=== PATIENT | male | born 1940 | race Caucasian/White ===

== ENCOUNTER 2020-02-10 04:46 | Day surgery (SDC) | payer OTHER ==
[2020-02-09 14:34] VITALS: BMI 29.9
[2020-02-10] MEDS ORDERED: PROPOFOL 20 ML ONE (07:52)
[2020-02-10] MEDS ORDERED: SUCCINYLCHOLINE CHLORIDE 200 MG/10 ML SYRINGE ONE (07:52)
[2020-02-10] MEDS ORDERED: MIDAZOLAM HCL 2 MG/2 ML SINGLE DOSE VIAL ONE (07:52)
[2020-02-10] MEDS ORDERED: ceFAZolin SODIUM 1 GM VIAL IVPB ONE (08:10)
[2020-02-10] MEDS ORDERED: ceFAZolin SODIUM 1 GM VIAL ONE (08:10)
--- NOTE | 2020-02-10 08:41 | OP ---
Operative Note - Note: Operative Date: 02/10/20 Pre-Operative Diagnosis: bph with luts, increase pvr Operation: turp/tuvp Findings: trilobar prostate hypertrophy Post-Operative Diagnosis: Same as Pre-op Chemistry Manager: Alo Quiles Anesthesia: General Specimens Removed: prostate chips Estimated Blood Loss (mls): 0 Instrument used (Debridements only): 0 Drains & Tubes with Location: 24f 30cc flannery Drains, Volume Out (mls): 0 Blood Volume Replaced (mls): 0 Fluid Volume Replaced (mls): 0 Operative Report Dictated: Yes
[2020-02-10] MEDS ORDERED: ACETAMINOPHEN 325 MG TABLET (FP) PO PRN (08:43)
[2020-02-10] MEDS ORDERED: ONDANSETRON 4 MG/2 ML VIAL IVPUSH PRN (08:46)
[2020-02-10] MEDS ORDERED: oxyCODONE HCL 5 MG TABLET PO PRN (08:46)
[2020-02-10] MEDS ORDERED: LACTATED RINGERS SOLUTION 1,000 ML IV SCH (09:00)
[2020-02-10] MEDS ORDERED: DEXAMETHASONE SOD PHOSPHATE 4 MG/1 ML VIAL ONE (09:18)
[2020-02-10] MEDS ORDERED: amLODIPine BESYLATE 5 MG TABLET (FP) PO SCH (10:00)
[2020-02-10] MEDS ORDERED: ATORVASTATIN CA 20 MG TABLET (FP) PO SCH (10:00)
[2020-02-10] MEDS ORDERED: ASCORBIC ACID 500 MG TABLET (FP) PO SCH (10:00)
--- NOTE | 2020-02-10 10:40 | CONS ---
DATE OF CONSULTATION: DATE OF DICTATION: 02/10/2020 PREOPERATIVE NOTE HISTORY OF PRESENT ILLNESS: Patient is a 79-year-old male with a history of prostatism, including frequency, urgency, dysuria, terminal dribbling and feelings of incomplete bladder emptying. He also has persistent microscopic hematuria. He wakes up 3-4 times at night. PAST MEDICAL HISTORY: Patient does have history of high blood pressure and hyperlipidemia. MEDICATIONS: He is on Norvasc and statin. ALLERGIES: He denies any allergies. SOCIAL HISTORY: He denies ethanol or tobacco. PHYSICAL EXAMINATION: General: Revealed a well-developed gentleman, no apparent distress. Genitourinary: Genitalia are atraumatic. Prostate is 3+, smooth, nontender. LABORATORY DATA: PSA is 1.6. IMPRESSION: At present is benign prostatic hypertrophy with lower urinary tract symptoms, possible stricture. PLAN: Cystoscopy, dilation, possible TURP. The patient will undergo the procedure. This was explained in detail to the patient, and he agrees. Jena [id number]
--- NOTE | 2020-02-10 10:58 | OP ---
DATE OF OPERATION: 02/10/2020 PREOPERATIVE DIAGNOSES: Prostatism, increased postvoid residual. OPERATIVE PROCEDURE: Cystourethroscopy, transurethral resection of prostate, transurethral vaporization of prostate. ANESTHESIA: General. BLOOD LOSS: 40 mL. DESCRIPTION OF PROCEDURE: Under above-stated anesthesia, patient was prepped and draped in the usual sterile manner. He was placed in the dorsal lithotomy position. Cystoscopy revealed trilobar hypertrophy of the prostate with lateral lobe kissing. The bladder revealed grade 2 trabeculation. No lesions or calculi were seen. A resectoscope was inserted. Resection of the prostate was commenced in the usual fashion. Prostate chips were evacuated with an Proxsys evacuator. A VaporTrode was then introduced, and excess prostate tissue was vaporized. Again, no bleeding or prostate tissue was seen. Therefore, the bladder was emptied. A 24-Urdu 2-way Madrigal was inserted. This was connected to a drainage bag. The patient tolerated the procedure well. He returned to the recovery room in good condition. Jena [id number]
[2020-02-10 13:31] VITALS: BP 176/86; PULSE 83; TEMP 98.5
--- NOTE | 2020-02-13 15:25 | PATH ---
Surgical Pathology Report Patient Name: ADILENE ENGEL [facility]. Rec. #: [id number] /Age/Gender: 1940 (Age: 79) / M Account: [id number] Location: [facility] Taken: 02/10/2020 Received: 02/10/2020 Reported: 02/13/2020 Physicians: Alo Quiles M.D. Specimen(s) Received PROSTATE CHIPS Clinical History Benign prostatic hypertrophy Final Diagnosis PROSTATE CHIPS, TRANSURETHRAL RESECTION OF THE PROSTATE: BENIGN PROSTATIC TISSUE WITH STROMAL AND GLANDULAR HYPERPLASIA, ACUTE AND CHRONIC PROSTATITIS. ADJACENT BENIGN UROTHELIAL MUCOSA SHOWING CHRONIC INFLAMMATION WITH FOCAL POLYPOID/PAPILLARY CYSTITIS. Electronically Signed Daphne Lew M.D. Gross Description Received in formalin labeled "prostate chips," is a 3 g, 4.3 x 3.0 x 0.4 cm aggregate of bedoya-pink, firm to rubbery portions of tissue, consistent with prostate chips. The specimen is entirely submitted in 3 cassettes. /02/10/2020 [facility]02/10/2020
== END 2020-02-10 12:00 | disposition home or self-care (01) ==
LOC: JASU-SURG 04:46
PROVIDERS: ATTEND Urology
PROC: 0VT08ZZ Resection of Prostate, Via Natural or Artificial Opening Endoscopic (ICD-10-PCS; principal; 2020-02-10 08:00)
DX: N40.1 Benign prostatic hyperplasia with lower urinary tract symptoms (principal); R35.0 Frequency of micturition; R39.15 Urgency of urination
CPT/HCPCS: 87086; 88305-TC; 94760

== ENCOUNTER 2020-02-10 15:11 | Emergency (ER) | payer OTHER ==
[2020-02-10 15:25] VITALS: TEMP 98.9; BMI 28.3
--- NOTE | 2020-02-10 15:58 | PDOC ---
History of Present Illness <Beena Newell - Last Filed: 02/10/20 18:48> - History of Present Illness Initial Comments: 79 YOM h/o BPH with multiple surgical interventions s/p TERP morning of arrival presents for blood in urine and urine leakage from urethra around catheter. Per patient her underwent TERP w/ Dr Quiles morning of arrival, there were no complications during procedure. 2 hours following completion of procedure patient noted red hue to urine that was accumulating in urine collection reservo ir. He also noted that his underwear and pants were soaked with reddish fluid, which he suggested was coming out from his urethra, around the catheter. He expresses concern for infection or catheter obstruction. He denies CP, SOB, N/V/D, fever, chills. 02/11/20 13:12 <Easton Helm - Last Filed: 02/11/20 13:22> - General Chief Complaint: Urinary Catheter Problem Stated Complaint: TUBE CLOGGED Time Seen by Provider: 02/10/20 15:58 Past History <Beena Newell - Last Filed: 02/10/20 18:48> - Medical History Cardiac Disorders: Yes COPD: No Diabetes: No HTN: Yes Hypercholesterolemia: Yes - Psycho-Social/Smoking History Smoking Status: Yes Smoking History: Never smoked Have you smoked in the past 12 months: No Number of Cigarettes Smoked Daily: 0 - Substance Abuse Hx (Audit-C & DAST Scrn) How often the patient has a drink containing alcohol: Never Score: In Men: 4 or > Positive; In Women: 3 or > Positive: 0 Screen Result (Pos requires Nsg. Audit-10AR): Negative In the last yr the pt used illegal drug/Rx for NonMed reason: No Score: Yes response is considered Positive: 0 Screen Result (Positive result requires Nsg. DAST-10): Negative <Easton Helm - Last Filed: 02/11/20 13:22> - Medical History Allergies/Adverse Reactions: Allergies Allergy/AdvReac Type Severity Reaction Status Date / Time No Known Allergies Allergy Verified 11/24/19 09:24 Home Medications: Ambulatory Orders Amlodipine Besylate [Norvasc -] 15 mg PO DAILY 11/08/12 Clopidogrel Bisulfate [Plavix -] 75 mg PO DAILY 11/08/12 Ascorbic Acid [Vitamin C] 1,000 mg PO DAILY 02/09/20 Atorvastatin Ca [Lipitor] 20 mg PO DAILY 02/09/20 Review of Systems - Review of Systems Able to Perform ROS?: Yes Constitutional: Yes: See HPI HEENTM: Yes: See HPI Respiratory: Yes: See HPI Cardiac (ROS): Yes: See HPI ABD/GI: Yes: See HPI : Yes: See HPI Musculoskeletal: Yes: See HPI Integumentary: Yes: See HPI Neurological: Yes: See HPI Endocrine: Yes: See HPI Hematologic/Lymphatic: Yes: See HPI <Easton Helm - Last Filed: 02/11/20 13:22> *Physical Exam - Vital Signs Last Vital Signs Temp Pulse Resp BP Pulse Ox 98.9 F 89 18 174/89 H 99 02/10/20 15:24 02/10/20 15:24 02/10/20 15:24 02/10/20 15:24 02/10/20 15:24 <Beena Newell - Last Filed: 02/10/20 18:48> - Vital Signs Last Vital Signs Temp Pulse Resp BP Pulse Ox 98.9 F 89 18 174/89 H 99 02/10/20 15:24 02/10/20 15:24 02/10/20 15:24 02/10/20 15:24 02/10/20 15:24 - Physical Exam General Appearance: Yes: Nourished, Appropriately Dressed, Mild Distress HEENT: positive: EOMI, YRN, Normal ENT Inspection, Normal Voice Neck: positive: Trachea midline, Normal Thyroid Respiratory/Chest: positive: Lungs Clear, Normal Breath Sounds Cardiovascular: positive: Regular Rhythm, Regular Rate, S1, S2 Gastrointestinal/Abdominal: positive: Flat, Soft Male Genitalia: positive: normal genitalia, other (flannery catheter appreciated in patients urethra, there is reddish fluid in collection bag of catheter, there is reddish fluids coming out from urethra around catheter. ) Musculoskeletal: positive: Normal Inspection Extremity: positive: Normal Capillary Refill Integumentary: positive: Normal Color, Dry, Warm Neurologic: positive: pantry cook II-XII NML intact, Fully Oriented, Alert, Normal Mood/Affect, Normal Response, Motor Strength 5/5 <Easton Helm - Last Filed: 02/11/20 13:22> ED Treatment Course - LABORATORY CBC & Chemistry Diagram: 02/10/20 16:45 02/10/20 16:45 - ADDITIONAL ORDERS Additional order review: Laboratory Results 02/10/20 16:45 Sodium 142 Potassium 3.8 Chloride 109 H Carbon Dioxide 25 Anion Gap 8 BUN 15.6 Creatinine 0.9 Est GFR (CKD-EPI)AfAm 95.15 Est GFR (CKD-EPI)NonAf 82.09 Random Glucose 115 H Calcium 9.2 Total Bilirubin 0.9 AST 19 ALT 34 Alkaline Phosphatase 85 Total Protein 7.2 Albumin 3.8 02/10/20 16:45 RBC 5.01 MCV 92.1 MCHC 34.2 RDW 12.8 MPV 9.8 Neutrophils % 89.0 H D Lymphocytes % 8.2 D Monocytes % 2.6 L Eosinophils % 0.0 D Basophils % 0.2 <Beena Newell - Last Filed: 02/10/20 18:48> - LABORATORY CBC & Chemistry Diagram: 02/10/20 16:45 02/10/20 16:45 <Esaton Helm - Last Filed: 02/11/20 13:22> Medical Decision Making - Medical Decision Making 79 year old male with recent TURP by Dr. Quiles at [facility] today, reported to ED f or blood in urine collection bag and urine leaking around his flannery catheter from his urethra. Initial Vital Signs Temp Pulse Resp BP Pulse Ox 98.9 F 89 18 174/89 H 99 02/10/20 15:24 02/10/20 15:24 02/10/20 15:24 02/10/20 15:24 02/10/20 15:24 Afebrile. No tachycardia. No tachypnea. Hypertensive. No hypoxia on room air. Abdomen was soft, nontender. Mixed blood and urine in flannery. Dr. Quiles was consulted, reported blood in bag is normal, <Beena Newell - Last Filed: 02/10/20 18:48> - Medical Decision Making 79 YOM h/o BPH with multiple surgical interventions s/p TERP morning of arrival presents for blood in urine and urine leakage from urethra around catheter. Per patient her underwent TERP w/ Dr Quiles morning of arrival, there were no complications during procedure. 2 hours following completion of procedure patient noted red hue to urine that was accumulating in urine collection reservoir. He also noted that his underwear and pants were soaked with reddish fluid, which he suggested was coming out from his urethra, around the catheter. He expresses concern for infection or catheter obstruction. He denies CP, SOB, N/V/D, fever, chills. ddx: normal post operative changes, catheter obstruction. plan: consult Dr. Quiles reassess: per Dr. Quiles, blood in urine is normal part of post surgical recovery. Flushed catheter per his instructions and saw that catheter tubing was patent and without obstruction. Did labs upon patients request which was wnl. dispo: dc to home with return precautions. 02/11/20 13:20 <Easton Helm - Last Filed: 02/11/20 13:22> Discharge - Discharge Information Problems reviewed: Yes - Admission No <Beena Newell - Last Filed: 02/10/20 18:48> <Easton Helm - Last Filed: 02/11/20 13:22> - Discharge Information Clinical Impression/Diagnosis: Urinary catheter dysfunction Condition: Stable Disposition: HOME - Follow up/Referral Referrals: Alo Quiles MD [Staff Physician] - - Patient Discharge Instructions Patient Printed Discharge Instructions: How to Care for Your Flannery Catheter -- Male, DI for Transurethral Resection of the Prostate Additional Instructions: Follow up with Dr. Quiles within 3 days regarding your ER visit. Continue taking all medications prescribed to you, especially the antibiotic (keflex) you were prescribed by Dr. Quiles today. Do not stop these, even if you are feeling better. Take with food to avoid stomach irritation. It is expected to have some blood in the urine collection bag after a urological procedure like you had today. It is expected that some urine will leak around the catheter from your penis. Return to the ER for increasing pain, chest pain, shortness of breath, vomiting, lightheadedness, shortness of breath, fever, chills, inability to urinate, clogged catheter bag, CLOTS of blood in catheter bag, or any other new, worsening or concerning symptoms.
[2020-02-10 17:29] LABS: BASO % 0.2 % (0-2.0); HEMATOCRIT 46.1 % (35.4-49); HEMOGLOBIN 15.8 GM/dL (11.7-16.9); LYMPH % 8.2 % (8-40); MCH 31.5 pg (25.7-33.7); MCHC 34.2 g/dl (32.0-35.9); MEAN CELL VOLUME 92.1 fl (80-96); MEAN PLT VOLUME 9.8 fl (7.5-11.1); MONO % 2.6 % (3.8-10.2); PLATELET COUNT 190 K/MM3 (134-434); RBC 5.01 M/mm3 (4.00-5.60); RDW 12.8 % (11.9-15.9); WHITE BLOOD COUNT 12.1 K/mm3 (4.0-10.0)
[2020-02-10 18:04] LABS: ALBUMIN 3.8 g/dl (3.4-5.0); BILIRUBIN,TOTAL 0.9 mg/dL (0.2-1); BLOOD UREA NITROGEN 15.6 mg/dL (7-18); CALCIUM 9.2 mg/dL (8.5-10.1); CREATININE 0.9 mg/dL (0.55-1.3); POTASSIUM 3.8 mmol/L (3.5-5.1); TOT PROT 7.2 g/dl (6.4-8.2)
[2020-02-10 19:10] VITALS: BP 170/96; PULSE 96
--- NOTE | 2020-02-10 20:10 | PDOC ---
Documentation entered by Tamara Isabel SCRIBE, acting as scribe for Carrie Davalos MD. Carrie Davalos MD: This documentation has been prepared by the vianeyibe, Tamara Isabel SCRIBE, under my direction and personally reviewed by me in its entirety. I confirm that the documentation accurately reflects all work, treatment, procedures, and medical decision making performed by me. Attending Attestation - Resident Resident Name: Easton Helm - ED Attending Attestation I have performed the following: I have examined & evaluated the patient, The case was reviewed & discussed with the resident, I agree w/resident's findings & plan, Exceptions are as noted - HPI HPI: 02/10/20 17:20 Agree with resident HPI - Physicial Exam PE: 02/10/20 20:04 GENERAL: Awake, alert, and fully oriented, in no acute distress. Non toxic EYES: PERRLA, EOMI, sclera anicteric, conjunctiva clear ENT: Oropharynx clear without exudates. Moist mucosa NECK: Normal ROM, supple, no lymphadenopathy, JVD, or masses LUNGS: Breath sounds equal, clear to auscultation bilaterally. No wheezes, and no crackles HEART: Regular rate and rhythm, normal S1 and S2, no murmurs, rubs or gallops ABDOMEN: Soft, nontender, normoactive bowel sounds. No guarding, no rebound. No masses : flannery in place, no leaking at urethra noted. Blood tinged urine in bag, not tenzin bleeding or clots. EXTREMITIES: Normal range of motion, no edema. No clubbing or cyanosis. No cords, erythema, or tenderness NEUROLOGICAL: Normal speech, cranial nerves intact, equal strength and sensation b/l SKIN: Warm, Dry, normal turgor, no rashes or lesions noted. - Medical Decision Making 02/10/20 18:45 79yo M s/p TURP with Dr. Quiles this AM presents to the ED with blood tinged urine in flannery bag as well as leaking around the flannery No clots or tenzin blood in bag, urine is draining Catheter flushed w/ no resistance Bleeding likely 2/2 turp procedure this AM Pt put on keflex prophylactically by Dr. Quiles Case discussed with Dr. Quiles who recommends DC as long as catheter flushes well Pt concerned about infection and requested labs checked which reveal a mild leukocytosis but otherwise wnl Pt reassured and discussed at length return precautions. Pt expresses understandning and is clinically stable for DC home Discharge - Discharge Information Clinical Impression/Diagnosis: Urinary catheter dysfunction Condition: Stable Disposition: HOME - Follow up/Referral Referrals: Alo Quiles MD [Staff Physician] - - Patient Discharge Instructions Patient Printed Discharge Instructions: How to Care for Your Flannery Catheter -- Male, DI for Transurethral Resection of the Prostate Additional Instructions: Follow up with Dr. Quiles within 3 days regarding your ER visit. Continue taking all medications prescribed to you, especially the antibiotic (keflex) you were prescribed by Dr. Quiles today. Do not stop these, even if you are feeling better. Take with food to avoid stomach irritation. It is expected to have some blood in the urine collection bag after a urological procedure like you had today. It is expected that some urine will leak around the catheter from your penis. Return to the ER for increasing pain, chest pain, shortness of breath, vomiting, lightheadedness, shortness of breath, fever, chills, inability to urinate, clogged catheter bag, CLOTS of blood in catheter bag, or any other new, worsening or concerning symptoms. - Post Discharge Activity
== END 2020-02-10 19:30 | disposition home or self-care (01) ==
LOC: JER 15:11
PROC: 3E03329 Introduction of Other Anti-infective into Peripheral Vein, Percutaneous Approach (ICD-10-PCS; principal; 2020-02-10)
PROC: 3E033GC Introduction of Other Therapeutic Substance into Peripheral Vein, Percutaneous Approach (ICD-10-PCS; 2020-02-10)
DX: T83.098A Other mechanical complication of other urinary catheter, initial encounter (principal)
CPT/HCPCS: 36415; 80053; 85025; 99284-25

== ENCOUNTER 2025-03-22 10:25 | Emergency (ER) | payer OTHER ==
[2025-03-22 10:49] VITALS: BP 141/85; PULSE 71; RESP 16; TEMP 98.2; BMI 34.7
== END 2025-03-22 11:37 | disposition home or self-care (01) ==
LOC: JERFT 10:25
DX: R94.6 Abnormal results of thyroid function studies (principal)
CPT/HCPCS: 99283-25